=== PATIENT | male | born 1990 | race Caucasian/White ===

== ENCOUNTER 2023-02-03 03:07 | Emergency (ER) | payer MEDICAID ==
[~2023-02-03] VITALS: Ht 182.9 cm; Wt 86.2 kg
[2023-02-03 03:40] LABS: BASOPHILS 0.5 % (0-2); EOSINOPHILS 3.6 % (0-6); HEMATOCRIT 41.2 % (35.0-50.0); HEMOGLOBIN 13.5 g/dL (12.0-18.0); LYMPHOCYTES 31.3 % (24-44); MCH 30.6 (27-36); MCHC 32.7 g/dl (30-36); MCV 93.5 fl (81-99); MONOCYTES 15.2 % (0-12); NEUTROPHILS 49.4 % (39-80); PLATELET COUNT 284 K/uL (140-440); RBC 4.41 M/ul (4.3-5.7); RDW 13.6 (10.5-15.0)
[2023-02-03 03:54] LABS: ALBUMIN 3.6 g/dL (3.4-5.0); ALBUMIN/GLOBULIN RATIO 0.9 (1.1-2.4); ANION GAP 11.7 (7-21); BILIRUBIN, TOTAL 0.5 ng/dL (0.2-1.0); BUN/CREATININE RATIO 14.89 (6.0-28.6); CALCIUM 8.6 mg/dL (8.5-10.1); CREATININE, SERUM 0.94 mg/dL (0.70-1.30); POTASSIUM 3.7 mmol/L (3.5-5.1); PROTEIN, TOTAL 7.6 g/dL (6.4-8.2)
[2023-02-03] MEDS ORDERED: CARAFATE1 GM PO (04:30)
[2023-02-03] MEDS ORDERED: PROTONIX40 MG PO (04:30)
[2023-02-03 04:49] VITALS: BP 122/78
[2023-02-05] MEDS ORDERED: HYDROCODON-ACE1 EA10 PO (13:01)
[2023-02-05] MEDS ORDERED: ACETAMINOPHEN500 MG PO (13:01)
[2023-02-05] MEDS ORDERED: IBUPROFEN600 MG PO (13:01)
== END 2023-02-03 04:50 | disposition home or self-care (01) ==
LOC: ED 03:07
PROVIDERS: Family Medicine
DX: K29.70 Gastritis, unspecified, without bleeding (principal); Z79.899 Other long term (current) drug therapy
CPT/HCPCS: 36415; 74177; 80053; 83690; 85025; 96375; 99284-25; J2270; J2405; J7030

== ENCOUNTER 2023-03-29 09:37 | Emergency (ER) | payer MEDICAID ==
[~2023-03-29] VITALS: Ht 172.7 cm; Wt 65.8 kg
[~2023-03-29 09:37] MED LIST: ACETAMINOPHEN500 MG PO; CARAFATE1 GM PO; HYDROCODON-ACE1 EA10 PO; IBUPROFEN600 MG PO; PROTONIX40 MG PO
[2023-03-29 09:54] LABS: BASOPHILS 0.5 % (0-2); EOSINOPHILS 0.9 % (0-6); HEMATOCRIT 38.7 % (35.0-50.0); HEMOGLOBIN 12.9 g/dL (12.0-18.0); LYMPHOCYTES 18.9 % (24-44); MCHC 33.2 g/dl (30-36); MCV 93.3 fl (81-99); MONOCYTES 13.2 % (0-12); NEUTROPHILS 66.5 % (39-80); PLATELET COUNT 262 K/uL (140-440); RBC 4.14 M/ul (4.3-5.7); RDW 13.7 (10.5-15.0)
[2023-03-29 10:02] LABS: BILIRUBIN, URINE NEGATIVE (negative); BLOOD/HGB, URINE NEGATIVE (Negative); KETONE, URINE NEGATIVE (Negative); LEUK ESTERASE, URINE NEGATIVE (negative); NITRITE, URINE NEGATIVE (negative)
[2023-03-29 10:03] LABS: ALBUMIN 4.5 g/dL (3.4-5.0); ALBUMIN/GLOBULIN RATIO 1.22 (1.1-2.4); ALCOHOL, MEDICAL <3 ng/dL (<3); ALKALINE PHOSPHATASE 55 U/L (46-116); ALT (SGPT) 82 U/L (14-59); ANION GAP 14.1 (7-21); AST (SGOT) 68 U/L (15-37); BILIRUBIN, TOTAL 1.9 ng/dL (0.2-1.0); CALCIUM 9.4 mg/dL (8.5-10.1); CARBON DIOXIDE 28 mmol/L (21-32); CHLORIDE 103 mmol/L (98-107); CREATININE, SERUM 1.03 mg/dL (0.70-1.30); GLOMERULAR FILTRATION RATE,EST 100 mL/min (>60); POTASSIUM 3.1 mmol/L (3.5-5.1); PROTEIN, TOTAL 8.2 g/dL (6.4-8.2); UREA NITROGEN 17 mg/dL (7-18)
[2023-03-29 10:07] LABS: AMPHETAMINES, UR POSITIVE (NEGATIVE); MARIJUANA (THC), UR POSITIVE (NEGATIVE)
[2023-03-29 10:08] LABS: BARBITURATES, UR NEGATIVE (NEGATIVE); BENZODIAZEPINES, UR NEGATIVE (NEGATIVE); BUPRENORPHINE,UR NEGATIVE (NEGATIVE); COCAINE, UR NEGATIVE (NEGATIVE); MDMA, UR POSITIVE (NEGATIVE); METHADONE, UR NEGATIVE (NEGATIVE); METHAMPHETAMINE, UR POSITIVE (NEGATIVE); OPIATES, UR NEGATIVE (NEGATIVE); OXYCODONE, UR NEGATIVE (NEGATIVE); PHENCYCLIDINE, UR NEGATIVE (NEGATIVE); TRICYCLIC ANTIDEPRESSANT, UR NEGATIVE (NEGATIVE)
[2023-03-29 10:11] VITALS: BP 138/80
== END 2023-03-29 10:21 | disposition other institution, planned readmission (95) ==
LOC: ED 09:37 → EDBD 09:37 → ED 09:37
PROVIDERS: Emergency Medicine
DX: R41.82 Altered mental status, unspecified (principal); F19.10 Other psychoactive substance abuse, uncomplicated
CPT/HCPCS: 36415; 80053; 81003; 85025; 96374; 99285-25; G0480; J2310